=== PATIENT | female | born 1970 | race Caucasian/White ===

== ENCOUNTER 2017-12-29 18:41 | Emergency (ER) | payer OTHER ==
[~2017-12-29] VITALS: Ht 157.5 cm; Wt 92.7 kg
[2017-12-29] MEDS ORDERED: SILVER SULFADIAZINE 1% 25 GM CREAM TP ONE (20:45)
[2017-12-29] MEDS ORDERED: IBUPROFEN 800 MG TABLET PO ONE (20:45)
[2017-12-29] MEDS ORDERED: PERTUSS(ACELL),DIPH,TET VAC/PF 0.5 ML VIAL IM ONE (21:15)
[2017-12-29 21:40] VITALS: BP 128/80
== END 2017-12-29 21:48 | disposition home or self-care (01) ==
LOC: EMS 18:46
DX: T22.211A Burn of second degree of right forearm, initial encounter (principal); T23.271A Burn of second degree of right wrist, initial encounter; X10.2XXA Contact with fats and cooking oils, initial encounter; Y93.89 Activity, other specified; Y92.89 Other specified places as the place of occurrence of the external cause; Y99.0 Civilian activity done for income or pay
CPT/HCPCS: 16020; 90471; 90715; 99284